=== PATIENT | female | born 1985 | race Caucasian/White ===

== ENCOUNTER 2020-02-09 18:54 | Emergency (ER) | payer OTHER, SELFPAY ==
[2020-02-09 18:55] VITALS: BP 139/100; PULSE 97; RESP 17; TEMP 36.3; O2SAT 97; BMI 24.3
--- NOTE | 2020-02-09 19:08 | CT_ITS ---
STUDY: CT ABDOMEN AND PELVIS WITHOUT CONTRAST REASON FOR EXAM: Female, 34 years old. LT FLANK PAIN RADIATION DOSAGE (If Supplied By Facility): CTDIvol = ( 10.86 ) mGy, DLP = ( 569.57 ) mGycm TECHNIQUE: Transaxial images were obtained from the dome of the diaphragm to the symphysis pubis without oral contrast, and without intravenous contrast. Sagittal and coronal images were reconstructed. Individualized dose optimization techniques were used for this CT. COMPARISON: None. FINDINGS: The visualized lung bases are unremarkable. The visualized portions of the heart are within normal limits. Normal liver. Normal gallbladder and extrahepatic biliary system. Normal spleen. Normal pancreas. Normal bilateral adrenal glands. Normal right kidney. Normal left kidney. No definite renal or ureteral stones are seen. There is no hydronephrosis on either side. Evaluation of the GI tract is limited by absence of oral contrast. Cannot exclude stomach wall thickening. No dilated loops of bowel or evidence for obstruction. Cannot exclude segmental thickening of the douglass of the small or large bowel. Cannot exclude enteritis or colitis. Moderate diffuse fecal retention. Appendix within normal limits. Normal abdominal aorta. Normal inferior vena cava. Normal retroperitoneum. Normal urinary bladder. Normal visualized uterus. Normal abdominal wall. Normal osseous structures. CT/Abdomen/Pelvis without Cont IMPRESSION: No definite acute or significant abnormality seen. Electronically Signed: Preet Eduardo MD at 20:15 EDT , Service support ,
[2020-02-09 19:17] LABS: Bacteria 0 SEEN /hpf (None Seen); Mucous, Urine 0 SEEN /hpf (<or=2+); Red Blood Cells-Urine 0 SEEN /hpf (0-5); White Blood Cells 0 SEEN /hpf (0-5)
[2020-02-09 19:27] LABS: Color, Urine Straw (Yellow); Glucose, Dipstick Normal (Normal); Ketone-Dipstick Negative (Negative); Leukocyte Esterase-Dipstick Negative /ul (Negative); Nitrite-Dipstick Negative (Negative); Occult Blood-Urine Negative /ul (Negative); Protein-Dipstick Negative (Negative); Specific Gravity, Urine 1.005 (1.002-1.030); Urine Bilirubin Dipstick Negative (Negative); Urine Clarity Clear (Clear); Urine Urobilinogen Normal (Normal); Urine pH 6.5 (5.0 - 8.0)
--- NOTE | 2020-02-09 19:27 | ED.VIS.GEN ---
History of Present Illness Chief Complaint: Flank Pain Narrative: This patient is a 34-year-old female who presents with left flank pain. She is concerned that she may have a kidney stone. She states her sister had 1 and described similarly. Patient complains of intermittent left flank pain for the past week. Currently her pain is only mild but it was severe before presentation. It does not radiate. It is sharp. She reports urinary frequency without dysuria or hematuria. No history of prior similar symptoms. She denies fevers nausea or vomiting. She has a history of a section no other abdominal surgeries. Past Medical History - Allergies and Home Meds Allergies/Adverse Reactions: Allergies benzonatate [From Tessalon Perles] Adverse Reaction (Mild, Verified 02/09/20 18:54) Vomiting pt states gets really sick when taken Primary Care Physician: Jean Osorio MD [Primary Care Provider] - Past Medical History: None Smoking Status: Never smoker Review of Systems All systems negative except as indicated General: Denies: Fever Eyes: Denies: Visual changes - bilaterally Cardiovascular: Denies: Chest pain Respiratory: Denies: Dyspnea Gastrointestinal: Reports: - - Left flank pain. Denies: Nausea, Vomiting, Diarrhea Genitourinary: Reports: Frequency Musculoskeletal: Denies: Myalgias, Arthralgias Skin: Denies: Rash Neurological: Denies: Headache Physical Exam Vital Signs/Narrative: Vital Signs Temp Pulse Resp BP Pulse Ox 02/09/20 18:55 97.3 F L 97 17 139/100 H 97 Inital Vital Signs reviewed: Yes General: Well nourished, Well developed Head: Normocephalic Eyes: EOMI ENT: Moist mucous membranes Neck: Supple Cardiovascular: Regular rate, Regular rhythm Respiratory: No distress, CTA bilaterally Abdomen: Soft, Nontender Back: CVA tenderness - Left-sided CVA tenderness Extremities: Nontender Skin: Normal color Neurological: Alert Psychological: Normal affect Diagnostic/Tx/Re-eval Impressions Abdomen/Pelvis CT 02/09/20 19:08 IMPRESSION: No definite acute or significant abnormality seen. Electronically Signed: Preet Eduardo MD at 20:15 EDT , Service support , 02/09/20 19:08 Abdomen/Pelvis without Cont [CT] Stat Laboratory Results 02/09/20 02/09/20 02/09/20 19:13 19:13 19:24 WBC 7.6 RBC 4.47 Hgb 13.1 Hct 40.1 MCV 89.7 MCH 29.3 MCHC 32.7 RDW Std Deviation 40.3 RDW Coeff of [place] 12.3 Plt Count 162 MPV 10.4 Immature Gran % (Auto) 0.300 Neut % (Auto) 76.5 H Lymph % (Auto) 14.0 L [place] % (Auto) 8.1 Eos % (Auto) 0.7 Baso % (Auto) 0.4 Absolute Neuts (auto) 5.9 Absolute Lymphs (auto) 1.07 Nucleated RBC % 0 Sodium Potassium Chloride Carbon Dioxide Anion Gap BUN Creatinine Estim Creat Clear Calc Est GFR (MDRD) Af Amer Est GFR (MDRD) Non-Af BUN/Creatinine Ratio Glucose Calcium Urine Color Straw Urine Clarity Clear Urine pH 6.5 Ur Specific [place] 1.005 Urine Protein Negative Urine Glucose (UA) Normal Urine Ketones Negative Urine Occult Blood Negative Urine Nitrite Negative Urine Bilirubin Negative Urine Urobilinogen Normal Ur Leukocyte Esterase Negative Urine RBC 0 SEEN Urine WBC 0 SEEN Ur Squamous Epith Cells 0-5 SEEN Urine Bacteria 0 SEEN Urine Mucus 0 SEEN Urine Test Negative 02/09/20 19:24 WBC RBC Hgb Hct MCV MCH MCHC RDW Std Deviation RDW Coeff of [place] Plt Count MPV Immature Gran % (Auto) Neut % (Auto) Lymph % (Auto) [place] % (Auto) Eos % (Auto) Baso % (Auto) Absolute Neuts (auto) Absolute Lymphs (auto) Nucleated RBC % Sodium 140 Potassium 3.2 L Chloride 106 Carbon Dioxide 29.0 Anion Gap 5 BUN 9 Creatinine 0.77 Estim Creat Clear Calc 111.32 Est GFR (MDRD) Af Amer 110 Est GFR (MDRD) Non-Af 91 BUN/Creatinine Ratio 11.7 Glucose 96 Calcium 9.3 Urine Color Urine Clarity Urine pH Ur Specific [place] Urine Protein Urine Glucose (UA) Urine Ketones Urine Occult Blood Urine Nitrite Urine Bilirubin Urine Urobilinogen Ur Leukocyte Esterase Urine RBC Urine WBC Ur Squamous Epith Cells Urine Bacteria Urine Mucus Urine Test - Medical Decision Making Diagnostic evaluation as above is normal. Normal laboratory studies and urinalysis. CT the abdomen pelvis shows no acute findings. No evidence of ureteral calculi. Patient was advised on supportive care. She was advised to follow-up as an outpatient. She understands to return for new or worsening symptoms. ED Disposition - Plan for ED Patient: Disposition: Home or Assisted Living Diagnosis: Flank pain Instructions: ED Flank Pain Uncertain Cause Referrals: Jean Osorio MD [Primary Care Provider] -
[2020-02-09 19:30] LABS: Internal QC Validated? YES +Cl - CLEAR BKGD; Pregnancy, Urine Negative Negative
[2020-02-09] MEDS: Ketorolac 30 MG/ML Syringe IV (19:30)
[2020-02-09] MEDS: 0.9% Normal Saline 1,000 ML 1000 ML IV (19:30)
[2020-02-09 19:32] LABS: Absolute Lymphocyte Count 1.07 X10^3/uL (0.83-4.51); Absolute Neutrophil Count 5.9 X10^3/uL (2.0-7.7); Basophil# 0.03 X10^3/uL; Basophil% 0.4 % (0-1); Eosinophil# 0.05 X10^3/uL; Eosinophils% 0.7 % (0-5); Hematocrit 40.1 % (37-47); Hemoglobin 13.1 g/dL (12.0-15.0); Lymphocyte # 1.07 X10^3/ul (4.0); Mean Corp Hgb Conc 32.7 g/dL (32-36); Mean Corpuscular Hgb 29.3 pg (27.0-32.0); Mean Corpuscular Volume 89.7 fL (81-99); Mean Platelet Vol. 10.4 fl (6.2-12.0); Monocyte# 0.62 X10^3/uL; Monocyte% 8.1 % (0-10); NRBC Flagged by Analyzer 0 % (0-5); Neutrophil # 5.85 X10^3/uL (2.7-7.7); Neutrophil % 76.5 % (47-70); Platelet Count 162 K/mm3 (150-450); RBC Distribution Width CV 12.3 % (11.6-14.6); RBC Distribution Width SD 40.3 fl (35.1-43.9); Red Blood Count 4.47 M/mm3 (4.2-5.4); White Blood Count 7.6 K/mm3 (4.4-11.0)
[2020-02-09 19:33] LABS: Squamous Epithelial Cells - UA 0-5 SEEN /hpf (5-10)
[2020-02-09 19:58] LABS: Anion Gap 5 (5-15); BUN 9 mg/dL (7-18); BUN/Creat Ratio 11.7 RATIO (10-20); Calcium,Total 9.3 mg/dL (8.5-10.1); Chloride 106 mmol/L (98-107); Creatinine, Serum 0.77 mg/dL (0.55-1.02); EST Glomerular Filtration Rate 91 mL/min (>60); Est Glom Filt Rate - Afr Amer 110 mL/min (>60); Estimated Creatinine Clearance 111.32 ml/min; Glucose 96 mg/dL (74-106); Potassium 3.2 mmol/L (3.5-5.1); Sodium Level 140 mmol/L (136-145)
[2020-02-09 21:15] VITALS: BP 132/78; PULSE 79; RESP 18; O2SAT 97
== END 2020-02-09 21:15 | disposition home or self-care (01) ==
PROVIDERS: Emergency Provider Emergency Medicine; PCP Family Medicine
DX: R10.9 Unspecified abdominal pain (principal); R35.0 Frequency of micturition
CPT/HCPCS: 74176; 80048; 81001; 81025; 85025; 96361; 96374; 99282; J7030; A4216

== ENCOUNTER → 2020-02-11 13:10 | Outpatient (CLI) | payer OTHER, SELFPAY ==
[2020-02-09 18:55] VITALS: BMI 24.3
== END ==
PROVIDERS: PCP Family Medicine; Visit Provider Family Medicine
DX: R10.9 Unspecified abdominal pain (principal)
CPT/HCPCS: 87086; 87088

== ENCOUNTER → 2020-03-02 10:20 | Outpatient (CLI) | payer OTHER, SELFPAY ==
[2020-03-02 09:37] VITALS: BMI 26.5
[2020-03-02 11:03] LABS: Thyroid Stim Hormone (TSH) 1.01 uIU/mL (0.358-3.74)
== END ==
PROVIDERS: PCP Family Medicine; Referring Provider Obstetrics & Gynecology; Visit Provider Obstetrics & Gynecology
DX: N93.9 Abnormal uterine and vaginal bleeding, unspecified (principal)
CPT/HCPCS: 36415; 84443

== ENCOUNTER → 2020-12-15 12:38 | Outpatient (CLI) | payer OTHER, SELFPAY ==
[2020-12-15 11:47] VITALS: BMI 26.5
[2020-12-15 14:05] LABS: T4 Free Direct 0.95 ng/dL (0.76-1.46); Thyroid Stim Hormone (TSH) 0.84 uIU/mL (0.358-3.74)
[2020-12-19 14:16] LABS: HPV APTIMA, High Risk Negative (Negative)
== END ==
PROVIDERS: PCP Family Medicine; Referring Provider Obstetrics & Gynecology; Visit Provider Obstetrics & Gynecology
DX: Z12.4 Encounter for screening for malignant neoplasm of cervix (principal); Z13.29 Encounter for screening for other suspected endocrine disorder
CPT/HCPCS: 36415; 84439; 84443; 87624; 88175; G0145

== ENCOUNTER → 2020-12-20 12:57 | Outpatient (CLI) | payer OTHER, SELFPAY ==
[2020-12-15 11:47] VITALS: BMI 26.5
--- NOTE | 2020-12-20 12:59 | US_ITS ---
STUDY: THYROID ULTRASOUND REASON FOR EXAM: Female, 35 years old. Thyromegaly TECHNIQUE: Ultrasound evaluation of the thyroid was performed with real-time and static batres-scale imaging. COMPARISON: None. FINDINGS: RIGHT LOBE: The right lobe of the thyroid gland measures 2.0 x 5.2 x 2.3 cm. There is a homogeneous echotexture. There are no demonstrated solid, cystic or complex lesions. LEFT LOBE: The left lobe of the thyroid gland measures 1.8 x 4.5 x 1.4 cm. There is a homogeneous echotexture. There are no demonstrated solid, cystic or complex lesions. ISTHMUS: The isthmus measures 0.5 centimeters. The regional lymph nodes are normal. US/Thyroid IMPRESSION: Enlarged thyroid gland. Electronically Signed: Mala Jose MD at 15:25 EDT Tel , Service support ,
== END ==
PROVIDERS: PCP Family Medicine; Referring Provider Obstetrics & Gynecology; Visit Provider Obstetrics & Gynecology
DX: E01.0 Iodine-deficiency related diffuse (endemic) goiter (principal)
CPT/HCPCS: 76536

== ENCOUNTER → 2022-01-14 | Outpatient (CLI) | payer OTHER, SELFPAY ==
[2022-01-14 09:48] LABS: Vitamin D,25 Hydroxy 36.5 ng/mL
[2022-01-14 09:52] LABS: Cholesterol 146 mg/dL (200); High Density Lipoprotein 71 mg/dL; T4 Free Direct 0.95 ng/dL (0.76-1.46); Thyroid Stim Hormone (TSH) 0.78 uIU/mL (0.358-3.74); Triglycerides 33 mg/dL; Very Low Density Lipoprotein 7 mg/dL (5-40)
[2022-01-16 00:06] LABS: Thyroid Peroxidase AB < 8 IU/mL (0-34)
[2022-01-16 08:45] LABS: Thyroglobulin Antibody < 1.0 IU/mL (0.0-0.9)
== END | disposition home or self-care (01) ==
LOC: PAVLAB 08:44
PROVIDERS: PCP Family Medicine; Referring Provider Obstetrics & Gynecology; Visit Provider Obstetrics & Gynecology
DX: Z13.21 Encounter for screening for nutritional disorder (principal); Z13.29 Encounter for screening for other suspected endocrine disorder; E01.0 Iodine-deficiency related diffuse (endemic) goiter; Z13.220 Encounter for screening for lipoid disorders
CPT/HCPCS: 36415; 80061; 82306; 83036; 84439; 84443; 86376; 86800

== ENCOUNTER → 2022-01-24 | Outpatient (CLI) | payer OTHER, SELFPAY ==
--- NOTE | 2022-01-24 12:04 | US_ITS ---
STUDY: THYROID ULTRASOUND REASON FOR EXAM: Female, 36 years old. Thyromegaly TECHNIQUE: Ultrasound evaluation of the thyroid was performed with real-time and static batres-scale imaging. COMPARISON: None. FINDINGS: RIGHT LOBE: The right lobe of the thyroid gland is enlarged and measures 5.7 cm x 2.2 cm x 1.9 cm. There is a homogeneous echotexture. There are no demonstrated solid, cystic or complex lesions. LEFT LOBE: The left lobe of the thyroid gland measures 4.8 cm x 1.6 cm x 1.3 cm. There is a homogeneous echotexture. There are no demonstrated solid, cystic or complex lesions. ISTHMUS: The isthmus measures 2.4 mm. The regional lymph nodes are normal. US/Thyroid IMPRESSION: There is enlargement of the right lobe of the thyroid gland. Electronically Signed: Mikal Dawkins MD at 15:04 EDT ,
== END | disposition home or self-care (01) ==
LOC: US 12:01
PROVIDERS: PCP Family Medicine; Visit Provider Obstetrics & Gynecology
DX: E01.0 Iodine-deficiency related diffuse (endemic) goiter (principal)
CPT/HCPCS: 76536

== ENCOUNTER → 2022-12-30 | Outpatient (CLI) | payer BC, SELFPAY ==
[2022-12-30 17:44] LABS: Absolute Lymphocyte Count 1.56 X10^3/uL (0.83-4.51); Absolute Neutrophil Count 3.7 X10^3/uL (2.0-7.7); Basophil# 0.05 X10^3/uL; Basophil% 0.9 % (0-1); Eosinophil# 0.16 X10^3/uL; Eosinophils% 2.7 % (0-5); Hematocrit 39.3 % (37-47); Hemoglobin 12.4 g/dL (12.0-15.0); Lymphocyte # 1.56 X10^3/ul (0.83-4.51); Lymphocyte % 26.8 % (19-41); Mean Corp Hgb Conc 31.6 g/dL (32-36); Mean Corpuscular Hgb 28.8 pg (27.0-32.0); Mean Corpuscular Volume 91.4 fL (81-99); Monocyte# 0.37 X10^3/uL; Monocyte% 6.4 % (0-10); NRBC Flagged by Analyzer 0 % (0-5); Neutrophil # 3.67 X10^3/uL (2.7-7.7); Platelet Count 188 K/mm3 (150-450); RBC Distribution Width CV 13.2 % (11.6-14.6); RBC Distribution Width SD 44.1 fl (35.1-43.9); White Blood Count 5.8 K/mm3 (4.4-11.0)
[2022-12-30 18:22] LABS: ALB/GLOB Ratio 1.1 RATIO (0.9-2.4); AST(SGOT) 13 U/L (15-37); Alanine Aminotransfer ALT/SGPT 21 U/L (13-56); Albumin, Serum 3.8 g/dL (3.2-5.0); Alkaline Phosphatase 57 U/L (45-117); Anion Gap 8 (5-15); BUN 12 mg/dL (7-18); BUN/Creat Ratio 15.1 RATIO (10-20); Calcium,Total 8.9 mg/dL (8.5-10.1); Chloride 105 mmol/L (98-107); Creatinine, Serum 0.79 mg/dL (0.55-1.02); EST Glomerular Filtration Rate 86 mL/min (>60); Est Glom Filt Rate - Afr Amer 105 mL/min (>60); Ferritin 40 ng/mL (8-252); Free T3 2.5 pg/mL (2.18-3.98); Globulin 3.4 g/dL (2.2-4.2); Glucose 93 mg/dL (74-106); Iron 44 ug/dL (50-170); Potassium 3.5 mmol/L (3.5-5.1); Protein, Total 7.2 g/dL (6.4-8.2); Sodium Level 141 mmol/L (136-145); T4 Free Direct 1.04 ng/dL (0.76-1.46); Thyroid Stim Hormone (TSH) 0.79 uIU/mL (0.358-3.74)
[2022-12-30 18:27] LABS: Rubella IgG Reactive (Nonreactive); Vitamin B12 430 pg/mL (211-911); Vitamin D,25 Hydroxy 43.4 ng/mL
[2023-01-01 18:07] LABS: Mumps Antibody,IgG < 9.0 AU/mL (Immune >10.9); Rubeola IgG Ab 91.7 AU/mL (Immune >16.4); Thyroglobulin Antibody 2.1 IU/mL (0.0-0.9); Thyroid Peroxidase AB < 9 IU/mL (0-34)
== END | disposition home or self-care (01) ==
LOC: BFHLAB 14:40
PROVIDERS: PCP Nurse Practitioner Family; Referring Provider Nurse Practitioner Family; Visit Provider Nurse Practitioner Family
DX: Z00.01 Encounter for general adult medical examination with abnormal findings (principal); E03.9 Hypothyroidism, unspecified; R53.83 Other fatigue; Z28.39 Other underimmunization status
CPT/HCPCS: 36415; 80053; 82306; 82607; 82728; 83540; 84439; 84443; 84481; 85025; 86376; 86735; 86762; 86765; 86800

== ENCOUNTER → 2024-07-12 | Outpatient (CLI) | payer OTHER, SELFPAY ==
--- NOTE | 2024-07-12 18:31 | US_ITS ---
PROCEDURE: THYROID REASON FOR EXAM: Thyromegaly. TECHNIQUE: Thyroid ultrasound COMPARISON: Comparison is made with prior study dated January 24, 2022. FINDINGS: Right thyroid lobe measures 5.4 cm x 1.7 cm x 1.8 cm. Left thyroid lobe measures 4.6 cm x 1.6 cm x 1.3 cm. Isthmus thickness is2.7 mm. Thyroid Size: Mildly enlarged right lobe of the thyroid. Background Echotexture: Normal Thyroid Nodules: None US/Thyroid IMPRESSION: Mild enlargement of the right lobe of the thyroid. No focal nodule is seen. Reading Location: [id number]
== END | disposition home or self-care (01) ==
LOC: US 18:30
PROVIDERS: PCP Nurse Practitioner Family; Referring Provider Nurse Practitioner Family; Visit Provider Nurse Practitioner Family
DX: E01.0 Iodine-deficiency related diffuse (endemic) goiter (principal)
CPT/HCPCS: 76536